=== PATIENT | male | born 1975 | race Caucasian/White ===

== ENCOUNTER 2019-06-23 17:45 | Emergency (ER) | payer SELFPAY ==
[~2019-06-23] VITALS: Ht 182.9 cm; Wt 81.8 kg
[2019-06-23 17:49] VITALS: BP 136/89; TEMP 99.6
[2019-06-23] MEDS ORDERED: CLEOCIN HCL300 MG PO (18:01)
[2019-06-23 18:15] VITALS: PULSE 101
== END 2019-06-23 18:15 | disposition home or self-care (01) ==
LOC: COL.ER 17:45
DX: K02.9 Dental caries, unspecified (principal); F17.210 Nicotine dependence, cigarettes, uncomplicated